=== PATIENT | female | born 1985 | race Native Hawaiian/Other Pacific Islander ===

== ENCOUNTER → 2021-01-16 08:56 | Outpatient (CLI) | payer OTHER, SELFPAY ==
--- NOTE | ~2021-01-16 | MM_ITS ---
EXAMINATION: MM diag antonio implant BI w ivone HISTORY: Left breast implant deviation TECHNIQUE: Craniocaudal, mediolateral, and mediolateral oblique 3-D tomosynthesis images with implant displacement of the breasts were performed and synthetic 2-D images were generated. Craniocaudal, m ediolateral oblique, and mediolateral views of the breasts without implant displacement were obtained using full field digital mammography. CAD analysis was submitted and interpreted. COMPARISON: 09/11/2015 BREAST PARENCHYMAL COMPOSITION: The breasts are heterogeneously dense, which may obscure small masses . FINDINGS: There is no evidence of suspicious mass, calcification, or architectural distortion in either breast to suggest malignancy. There has been no suspicious interval change. The position of the breast impl ants appears unchanged relative to the comparison examination. Positioning of the breast required for obtaining mammographic images can result in an accurate reflection of the true implant position i.e. a displaced implant could appear to be in normal position due to compression placed on the breast. IMPRESSION: 1. No significant change in implant position compared to the prior examination. Implant displacement is difficult to assess by imaging and better assessed by clinical examination. 2. Recommend routine screening mammography beginning at age 40. BI-RADS Category 1: Negative Reviewed, dictated and finalized at location A.
== END ==
PROVIDERS: Visit Provider Nurse Practitioner
DX: N64.89 Other specified disorders of breast (principal)
CPT/HCPCS: 77062; 77066; G0279

== ENCOUNTER 2022-03-21 06:27 | Day surgery (SDC) | payer OTHER, SELFPAY ==
[2022-03-12 14:55] VITALS: BMI 31.4
--- NOTE | 2022-03-20 15:17 | P.PNAN_ITS ---
Anes - Initial Pre Proc Eval Procedure: Operation Date: 03/21/22 09:00 Proposed Procedures p Bilateral Breast Implant Exchange with Capsulectomy - Werner Omer MD Date/Time: 03/20/22 15:17 Surgeon: Werner Omer MD Pre Op Diagnosis: Left Breast Implant Rupture Patient Data Age: 36 Gender: F Height: 1.57 m Weight: 78 kg Allergies Allergy/AdvReac Type Severity Reaction Status Date / Time No Known Allergies Allergy Verified 03/21/22 07:59 Home Medications Medication Instructions Recorded Confirmed Type albuterol sulfate 90 mcg/actuation 2 inhalation inhalation Q4-6H PRN 02/28/19 03/12/22 Rx breath activated powder inhaler shortness of breath or wheezing #1 ea Patient hx anesthesia problems: none Family hx anesthesia problems: none Results Review: All pre-operative results and documents have been reviewed as part of the pre- operative evaluation. [facility] Past Medical History Medical History (Updated 03/20/22 @ 15:18 by Herman Cee DO) Asthma Surgical History Surgical History (Updated 03/20/22 @ 15:18 by Herman Cee DO) History of breast augmentation 2011 Social History Social History (Updated 02/28/19 @ 01:06 by Haily Calabrese) Smoking status: Never smoker Additional smoking assessment comments: quit 7 years ago Alcohol intake: never Substance use: current Substance use type: marijuana Last use: 03/11/22 Living arrangements: with family Spiritual care concerns: No Anes - Eval Final PreProcedure Day of Procedure 03/20/22 15:17 Patient weight: obese Heart: regular rate and rhythm Lungs: clear to auscultation Airway: Mallampati scale class II Neurological: alert and oriented Last oral intake: >/= 8 hours ASA classification: II Emergent: no Anesthetic plan: proceed Anesthesia type and monitoring: general LMA and standard monitoring Results Review: All pre-operative results and documents have been reviewed as part of the pre-operative evaluation. Informed Consent: The patient's anesthetic plan and its attendant risks and benefits were discussed with the patient/family/POA. Questions were solicited and answers provided to the satisfaction of the patient/family/POA.
[2022-03-21] VITALS (9 sets, daily range): BP systolic 114–125; BP diastolic 62–81; PULSE 63–87; RESP 14–18; TEMP 36.3–37.1; O2SAT 97–100; BMI 33.0
[2022-03-21] MEDS: LACTATED RINGERS 1,000 ML 30 ML IV CONT ×2 (08:28→10:27)
--- NOTE | 2022-03-21 08:51 | WPDHPUPDATE1 ---
History and Physical Update Update Date/Time: 03/21/22 08:51 History and Physical has been reviewed, including an updated exam of the patient. There are NO changes in the patient's condition. Risks, benefits, and alternatives have been discussed and questions answered. Patient agrees to proceed with procedure.
--- NOTE | 2022-03-21 08:51 | W.PM.PROC2 ---
Procedure Note - Detailed Date of Procedure 03/21/22 Pre-op Diagnosis Left Breast Implant Rupture Post-op Diagnosis Same Procedure Performed Bilateral breast implant exchange with partial capsulectomy Surgeon Werner Omer MD Anesthesia General Findings Right breast implant intact. Left breast implant rupture. Description of Procedure Preoperatively the risks, benefits, alternatives were discussed in extensive detail. I want her to be very realistic about the risks involved as well as expectations. She understands how we can actually make worse. She understands this will not correct waterfall deformity. Answered all of her questions are satisfaction. Voiced a clear understanding. Consent obtained. She was taken the operating room placed supine on the operating room table. Anesthesia provided by anesthesiology and prepped and draped in a standard sterile fashion. Surgical time-out was taken. 1% lidocaine and 0.25% Marcaine with epinephrine was used to provide a field block. Tegaderm nipple Gabriel were placed. Fifteen blade used to excise the previous IMF scars. Dissection was continued down until the capsules were identified and excised a significant portion of the capsule which was sent to pathology. I then copiously irrigated with 3 L of saline solution on TUR tubing. Verified strict hemostasis. I then irrigated with Betadine containing solution. Using a no-touch technique and a Waggoner funnel the implant was introduced into the pocket. This was closed with 2-0 Vicryl followed by 3-0 Monocryl in a running subcuticular 4-0 Monocryl and tissue glue. Dressings were placed. She was woken taken to the PACU without difficulty. All instrument sponge counts were correct at the end of the case. Estimated Blood Loss 20 Drains No Packing No Pathology Yes (Bilateral breast capsules) Complications No immediate complications Condition Stable Disposition PACU
[2022-03-21] MEDS: ceFAZolin SODIUM 2 GM/20 ML SW SYRINGE IV PUSH (09:00)
[2022-03-21] MEDS: NACL 0.9% IRRIG POUR BOTTLE 900 ML, GENTAMICIN SULFATE INJ 160 MG, ceFAZolin 2 GM, POVI... IRRIGATION (09:45)
[2022-03-21] MEDS: LIDO 1%/EPINEPHRINE 1:100,000 20 ML VIAL 40 ML INFILTRATE (10:05)
[2022-03-21] MEDS: fentaNYL CITRATE INJ (*CRX) 100 MCG/2 ML VIAL 25 MCG IV PUSH ×6 (10:33→11:16)
[2022-03-21] MEDS: oxyCODONE HCL (*CRX) 5 MG TAB IR PO (11:42)
--- NOTE | 2022-03-21 13:50 | WPDANESPN ---
Anes - Prog Note Post-Op Date/Time: 03/21/22 13:50 Cardiovascular status: normal Respiratory status: normal Airway patency: baseline Mental status: baseline Post-Op hydration status: normal Vital Signs: Last Vital Signs Temp 36.3 C L 03/21/22 10:21 Pulse 65 03/21/22 11:50 Resp 15 03/21/22 11:50 BP 121/74 03/21/22 11:50 Pulse Ox 100 03/21/22 11:50 O2 Del Method Room Air 03/21/22 11:50 O2 Flow Rate 5 03/21/22 10:21 Pain Score (VAS): 2 I/O: Intake & Output 03/20/22 03/21/22 03/21/22 23:59 07:59 15:59 Intake Total 200 Balance 200 Post-procedural complaints: none Patient Feedback: Patient satisfied with anesthetic care. Other Findings: Patient vital signs back to baseline. Patient denies nausea and vomiting. Patient's pain under control. Patient OK for discharge.
== END 2022-03-21 12:11 | disposition home or self-care (01) ==
PROVIDERS: PCP Family Medicine Sports Medicine; Visit Provider Surgery Plastic and Reconstructive Surgery
PROC: (CPT 19342; principal; 2022-03-21 09:00)
DX: Z45.819 Encounter for adjustment or removal of unspecified breast implant (principal)
CPT/HCPCS: 19342

== ENCOUNTER 2022-03-21 08:00 | Outpatient (NON) | payer OTHER, SELFPAY | END 2022-03-21 08:01 | disposition home or self-care (01) | LOC: ANHLAB 03-24 10:03 | PROVIDERS: PCP Family Medicine Sports Medicine; Visit Provider Surgery Plastic and Reconstructive Surgery | DX: Z45.819 Encounter for adjustment or removal of unspecified breast implant (principal) | CPT/HCPCS: 88304 ==

== ENCOUNTER → 2022-09-03 10:32 | Outpatient (CLI) | payer OTHER, SELFPAY ==
--- NOTE | ~2022-09-03 | US_ITS ---
Thyroid ultrasound. Clinical History: Disorder of thyroid Findings: Real-time sonography of the thyroid gland was performed. The right lobe measures 5.8 x 1.8 x 2.0 cm. The left lobe measures 6.0 x 1.3 x 2.0 cm. The isthmus is 3 mm in AP diameter. Subcentimeter left thyroid lobe nodules measuring up to 7 mm in maximum diameter. There is a 4 mm hyp oechoic right thyroid nodule. Impression: Subcentimeter thyroid nodules, as above, which require no further follow-up. Reviewed, dictated and finalized at location M. Impression: Subcentimeter thyroid nodules, as above, which require no further follow-up.
== END ==
PROVIDERS: PCP Nurse Practitioner; Visit Provider Nurse Practitioner
DX: E07.9 Disorder of thyroid, unspecified (principal); E04.2 Nontoxic multinodular goiter
CPT/HCPCS: 76536